=== PATIENT | female | born 1950 | race Caucasian/White ===

== ENCOUNTER 2022-11-28 13:50 | Emergency (ER) | payer MEDICARE ==
[~2022-11-28] VITALS: Ht 149.9 cm; Wt 68.0 kg
[2022-11-28 16:38] VITALS: BP 165/67
== END 2022-11-28 16:39 | disposition home or self-care (01) ==
LOC: EDH 13:50
DX: F41.9 Anxiety disorder, unspecified (principal); Z88.0 Allergy status to penicillin; Z88.8 Allergy status to other drugs, medicaments and biological substances
CPT/HCPCS: 84484; 93005